=== PATIENT | female | born 1960 | race African-American/Black ===

== ENCOUNTER 2018-09-28 12:52 | Inpatient (IN) | payer MEDICAID ==
[~2018-09-28] VITALS: Ht 157.5 cm; Wt 50.8 kg
[~2018-09-28 12:52] MED LIST: ALBU90AE IH; ALLO100T PO; AM500 PO; FERR325T6 PO; FURO20TA4 PO; LISI-186 PO
[2018-09-28] MEDS ORDERED: MORPHINE SULFATE 4 MG/ML CPJ (NOT FOR IM USE) IV STA (15:29)
[2018-09-28] MEDS ORDERED: SODIUM CHLORIDE 0.9% 1,000 ML IV ONE (15:29)
[2018-09-28] MEDS ORDERED: ONDANSETRON HCL 4MG/2ML INJ IV STA (15:29)
[2018-09-28 16:52] LABS: BASOPHILS % 1.3 % (0.0-2.0); EOSINOPHILS % 0.2 % (0.0-5.0); HEMATOCRIT. 46.7 % (36.0-48.0); HEMOGLOBIN. 15.8 g/dL (12.0-16.0); LYMPHOCYTES % 40.9 % (20.0-50.0); MEAN CORPUSCULAR HEMOGLOBIN 31.9 pg (28.0-32.0); MEAN CORPUSCULAR VOLUME 94.4 fL (81.0-99.0); MONOCYTES % 6.8 % (2.0-8.0); NEUTROPHILS % 50.8 % (40.0-76.0); PLATELET 363 x1000/uL (130-400); RED BLOOD CELL COUNT 4.95 mill/uL (4.2-5.4)
[2018-09-28 16:56] LABS: CHLORIDE 95 mEq/L (98-107)
[2018-09-28 16:59] LABS: INR 0.9; PARTIAL THROMBOPLASTIN TIME 25.4 sec (23.4-31.0); PROTHROMBIN TIME 9.4 sec (9.1-11.1)
[2018-09-28] MEDS ORDERED: DEXTROSE 50% WATER 50ML SYRINGE IV ONE ×2 (17:15→17:18)
[2018-09-28] MEDS ORDERED: ASPIRIN 325MG EC TABLET PO ONE (17:30)
[2018-09-28] MEDS ORDERED: ONDANSETRON HCL 4MG/2ML INJ IV PRN (18:00)
[2018-09-28] MEDS: HYDROCODONE/ACETAMINOPHEN 5/325MG TABLET PO PRN (21:25)
[2018-09-29] VITALS (8 sets, daily range): BP systolic 104–151; BP diastolic 63–90
[2018-09-29] MEDS ORDERED: IPRATROPIUM/ALBUTEROL 0.5-3(2.5)MG/3ML NEB HHN PRN (00:57)
[2018-09-29] MEDS ORDERED: CLONIDINE 0.1MG TABLET PO PRN (00:58)
[2018-09-29] MEDS ORDERED: DEXT 5%/0.45% NACL 1000ML 1,000 ML IV SCH (00:58)
[2018-09-29] MEDS ORDERED: ONDANSETRON HCL 4MG/2ML INJ IV PRN (00:58)
[2018-09-29] MEDS ORDERED: ACETAMINOPHEN 325MG TABLET PO PRN (00:58)
[2018-09-29] MEDS ORDERED: ATEN50TA PO (02:04)
[2018-09-29] MEDS: HYDROCODONE/ACETAMINOPHEN 5/325MG TABLET PO PRN ×4 (02:17→20:45)
[2018-09-29 05:47] LABS: CLARITY URINE CLOUDY (CLEAR); COLOR URINE YELLOW (YELLOW); KETONES URINE 1+ (NEGATIVE); LEUKOCYTE ESTERASE URINE NEGATIVE (NEGATIVE); NITRITE URINE NEGATIVE (NEGATIVE); OCCULT BLOOD URINE NEGATIVE (NEGATIVE); PROTEIN URINE TRACE (NEGATIVE)
[2018-09-29 06:05] LABS: *AMPHETAMINES SCREEN URINE NEGATIVE (NEGATIVE); *BARBITURATES SCREEN URINE NEGATIVE (NEGATIVE); *BENZODIAZEPINES SCREEN URINE NEGATIVE (NEGATIVE); *COCAINE SCREEN URINE PRESUMTIVE POSITIVE (NEGATIVE); METHADONE URINE SCREEN NEGATIVE (NEGATIVE); OPIATES URINE SCREEN PRESUMTIVE POSITIVE (NEGATIVE)
[2018-09-29 06:06] LABS: CANNABINOID URINE SCREEN PRESUMTIVE POSITIVE (NEGATIVE); PHENCYCLIDINE URINE SCREEN NEGATIVE (NEGATIVE)
[2018-09-29 06:08] LABS: BASOPHILS % 1.2 % (0.0-2.0); EOSINOPHILS % 0.2 % (0.0-5.0); HEMATOCRIT. 40.8 % (36.0-48.0); HEMOGLOBIN. 13.6 g/dL (12.0-16.0); LYMPHOCYTES % 41.3 % (20.0-50.0); MEAN CORPUSCULAR HEMOGLOBIN 31.8 pg (28.0-32.0); MEAN CORPUSCULAR VOLUME 95.3 fL (81.0-99.0); MEAN PLATELET VOLUME 8.4 fl (7.4-10.4); MONOCYTES % 9.9 % (2.0-8.0); NEUTROPHILS % 47.4 % (40.0-76.0); PLATELET 279 x1000/uL (130-400); RED BLOOD CELL COUNT 4.28 mill/uL (4.2-5.4); RED CELL DISTRIBUTION WIDTH 15.1 % (11.6-14.6)
[2018-09-29 06:24] LABS: CHLORIDE 98 mEq/L (98-107)
[2018-09-29] MEDS: BLOOD SUGAR DIAGNOSTIC STRIP TEST SCH ×4 (08:43→20:45)
[2018-09-29] MEDS ORDERED: BUDESONIDE 0.5MG/2ML NEB HHN SCH (09:00)
[2018-09-29 12:52] LABS: T4 FREE 0.95 ng/dL (0.76-1.46)
[2018-09-29 17:11] LABS: CREATINE KINASE 151 IU/L (26-192)
[2018-09-29 17:12] LABS: CREATINE KINASE MB FRACTION 2.1 ng/mL (0.5-3.6)
[2018-09-30] VITALS: BP 111/65
[2018-09-30 01:03] LABS: CREATINE KINASE 128 IU/L (26-192); CREATINE KINASE MB FRACTION 1.4 ng/mL (0.5-3.6)
[2018-09-30] MEDS: HYDROCODONE/ACETAMINOPHEN 5/325MG TABLET PO PRN ×3 (01:07→12:31)
[2018-09-30 04:00] VITALS: BP 130/82
[2018-09-30] MEDS: BLOOD SUGAR DIAGNOSTIC STRIP TEST SCH ×4 (04:00→12:00)
[2018-09-30 06:35] LABS: BASOPHILS % 0.6 % (0.0-2.0); EOSINOPHILS % 0.8 % (0.0-5.0); HEMATOCRIT. 39.3 % (36.0-48.0); HEMOGLOBIN. 12.9 g/dL (12.0-16.0); LYMPHOCYTES % 44.8 % (20.0-50.0); MEAN CORPUSCULAR HEMOGLOBIN 31.6 pg (28.0-32.0); MEAN PLATELET VOLUME 8.5 fl (7.4-10.4); MONOCYTES % 9.7 % (2.0-8.0); NEUTROPHILS % 44.1 % (40.0-76.0); PLATELET 254 x1000/uL (130-400); RED BLOOD CELL COUNT 4.09 mill/uL (4.2-5.4); RED CELL DISTRIBUTION WIDTH 15.3 % (11.6-14.6)
[2018-09-30 06:40] LABS: CHLORIDE 103 mEq/L (98-107)
[2018-09-30 06:49] LABS: CREATINE KINASE 115 IU/L (26-192)
[2018-09-30 06:50] LABS: CREATINE KINASE MB FRACTION 1.1 ng/mL (0.5-3.6)
[2018-09-30 08:00] VITALS: BP 122/84
[2018-09-30 12:00] VITALS: BP 114/79
[2018-09-30 15:46] VITALS: BP 114/79
[2018-10-01 06:20] LABS: FOLICLE STIMULATING HORMONE 61.3 mIU/mL (.); PROLACTIN 28.3 ng/mL (4.8-23.3)
[2018-10-02 14:15] LABS: C-PEPTIDE 2.1 ng/mL (1.1-4.4); INSULIN 2.1 uIU/mL (2.6-24.9)
== END 2018-09-30 17:15 | disposition home or self-care (01) | DRG 424 ==
LOC: ER 13:25 → 6WST 17:28 → ENRESERV 22:34
PROVIDERS: ADMIT Internal Medicine; ATTEND Internal Medicine
DX: E16.2 Hypoglycemia, unspecified (principal); I42.9 Cardiomyopathy, unspecified; G90.8 Other disorders of autonomic nervous system; E87.8 Other disorders of electrolyte and fluid balance, not elsewhere classified; I11.0 Hypertensive heart disease with heart failure; I50.32 Chronic diastolic (congestive) heart failure; M41.9 Scoliosis, unspecified; E87.1 Hypo-osmolality and hyponatremia; H54.7 Unspecified visual loss; J44.9 Chronic obstructive pulmonary disease, unspecified; I25.10 Atherosclerotic heart disease of native coronary artery without angina pectoris; F17.210 Nicotine dependence, cigarettes, uncomplicated; E78.00 Pure hypercholesterolemia, unspecified; E78.5 Hyperlipidemia, unspecified; Z60.2 Problems related to living alone; W18.39XA Other fall on same level, initial encounter; Y93.89 Activity, other specified; Y92.098 Other place in other non-institutional residence as the place of occurrence of the external cause; Z83.3 Family history of diabetes mellitus; Z95.0 Presence of cardiac pacemaker; Y99.8 Other external cause status
CPT/HCPCS: 36415; 71045; 73030; 73502; 78582; 80048; 80061; 80305; 82533; 82550; 82553; 82947; 82962; 83001; 83002; 83036; 83525; 83880; 84146; 84439; 84443; 84484; 84681; 85379; 93005; 93306; 93880; 93970; 96361; 96374; 96375; 97116; 97162; 97530; 99285; A9558; C1893; J2270; J2405; J7030

== ENCOUNTER 2019-01-21 14:21 | Emergency (ER) | payer MEDICAID ==
[~2019-01-21] VITALS: Ht 167.6 cm; Wt 61.0 kg
[~2019-01-21 14:21] MED LIST changes: -AM500 PO; +ATEN50TA PO
[2019-01-21] MEDS ORDERED: THIAMINE HCL 100MG TABLET PO ONE (16:45)
[2019-01-21] MEDS ORDERED: SODIUM CHLORIDE 0.9% 1,000 ML IV ONE (16:45)
[2019-01-21] MEDS ORDERED: HYDROCODONE/ACETAMINOPHEN 5/325MG TABLET PO ONE (17:15)
[2019-01-21 17:42] LABS: CHLORIDE 108 mEq/L (98-107)
[2019-01-21 17:45] LABS: ETHANOL BLOOD 251 mg/dL
[2019-01-21 17:52] VITALS: BP 127/78
== END 2019-01-21 19:06 | disposition home or self-care (01) ==
LOC: ER 14:25
DX: F10.129 Alcohol abuse with intoxication, unspecified (principal); G89.29 Other chronic pain; M25.571 Pain in right ankle and joints of right foot; E78.00 Pure hypercholesterolemia, unspecified; J44.9 Chronic obstructive pulmonary disease, unspecified; I11.0 Hypertensive heart disease with heart failure; I50.9 Heart failure, unspecified; Y90.8 Blood alcohol level of 240 mg/100 ml or more; Z95.0 Presence of cardiac pacemaker
CPT/HCPCS: 36415; 73610; 80048; 80320; 84484; 93005; 99284; J7030; G0480